=== PATIENT | female | born 1970 | race Caucasian/White ===

== ENCOUNTER 2017-10-30 08:57 | Outpatient (CLI) | payer BC, MEDICARE ==
--- NOTE | 2017-10-30 10:38 | ULT ---
RIGHT UPPER QUADRANT ULTRASOUND: Date: 10-30-17 History: Elevated liver enzymes. FINDINGS: The most proximal abnormal aorta is obscured by bowel gas. The mid and distal abdominal aorta are nor mal in caliber. Visualized portions of the pancreas, liver, and right kidney demonstrate a normal sonographic appeara nce. The right kidney measures 8.6 cm in length. The gallbladder is not visualized consistent with patient's reported history of prior cholecystectomy . The common duct measures 0.2 cm in diameter which is within normal limits. IMPRESSION: 1. Cholecystectomy. Common duct is normal in caliber. POS: [facility]
== END 2017-10-30 08:58 | disposition home or self-care (01) ==
LOC: MADULT 08:57
PROVIDERS: ATTEND Family Medicine
DX: R94.5 Abnormal results of liver function studies (principal); F17.200 Nicotine dependence, unspecified, uncomplicated; Z90.49 Acquired absence of other specified parts of digestive tract
CPT/HCPCS: 76705

== ENCOUNTER 2017-11-16 18:34 | Emergency (ER) | payer BC, MEDICARE ==
[2017-11-16] MEDS ORDERED: HYDROcodone/Acetaminophen 10/325 mg Tablet ONE (19:32)
[2017-11-16] MEDS ORDERED: Morphine 4 MG/ML VIAL ONE (19:35)
[2017-11-16] MEDS ORDERED: Acetaminophen 500 MG TAB ONE (20:35)
--- NOTE | 2017-11-16 20:46 | CT ---
HEAD CT WITHOUT CONTRAST 11/16/17 HISTORY: Arachnoid cyst, removed seven years ago. COMPARISON: 12/26/15, 07/26/15. TECHNIQUE: Noncontrast head CT is performed from skull base to skull vertex. FINDINGS: Postsurgical changes compatible with a left occipital craniotomy. Metallic plate is redemonstrated. S uperficial to this plate, there is a well circumscribed hypodense area with an attenuation coefficien t of 1 Hounsfield unit suggesting a possible pseudomeningocele measuring 9.1 x 3.8 cm. Stable malacic change involving the left cerebellar hemisphere. No parenchymal hemorrhage. No extra-a xial hematoma. No midline shift. Basilar cisterns are patent. Stable malacic change involving the right parietotemporal region due to previous [employer]ATOR shunt catheter pl acement. The remainder of the cerebrum demonstrates preservation of cortical baxter-white matter differ entiation. 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 IMPRESSION: 1. No acute intracranial process. 2. 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 Consider neurosurgica l consultation. POS: [facility]
[2017-11-16] MEDS ORDERED: Diazepam 5 MG TAB ONE (21:24)
[2017-11-16] MEDS ORDERED: diphenhydrAMINE 12.5 MG/5 ML UDCUP ONE (21:25)
[2017-11-16] MEDS ORDERED: Morphine 10 MG/ML VIAL ONE (21:25)
[2017-11-16] MEDS ORDERED: Metoclopramide HCl 10 MG TAB ONE (21:25)
== END 2017-11-16 21:33 | disposition home or self-care (01) ==
LOC: MADERS 18:34
DX: G97.82 Other postprocedural complications and disorders of nervous system (principal); G96.19 Other disorders of meninges, not elsewhere classified; F17.200 Nicotine dependence, unspecified, uncomplicated; Z79.899 Other long term (current) drug therapy
CPT/HCPCS: 70450; 96372; J2270

== ENCOUNTER 2017-11-22 18:23 | Emergency (ER) | payer MEDICARE, BC ==
[2017-11-22] MEDS ORDERED: Fentanyl 100 MCG/2 ML VIAL ONE (19:39)
[2017-11-22] MEDS ORDERED: Ondansetron ODT 4 MG TAB ONE (19:39)
[2017-11-22] MEDS ORDERED: Ibuprofen 800 MG TAB ONE (19:39)
== END 2017-11-22 20:12 | disposition home or self-care (01) ==
LOC: MADERS 18:23
DX: G93.0 Cerebral cysts (principal); G89.29 Other chronic pain; F17.200 Nicotine dependence, unspecified, uncomplicated; Z79.899 Other long term (current) drug therapy
CPT/HCPCS: 96372; J3010; Q0162

== ENCOUNTER 2017-11-23 17:44 | Outpatient (CLI) | payer MEDICARE, BC ==
[2017-11-23 18:06] LABS: #Basophils 0.1 thou/uL (0.0-0.2); #Eosinphils 0.3 thou/uL (0.0-0.7); #Monocytes 0.4 thou/uL (0.11-0.59); #Neutrophils 3.9 thou/uL (1.40-6.50); %Basophils 0.8 % (0.0-1.0); %Lymphocytes 30.2 % (21.0-51.0); %Monocytes 6.1 % (0.0-10.0); %Neutrophils 58.9 % (42.0-75.0); Hemoglobin 12.4 g/dL (12.0-16.0); Mean Corpuscular HGB CONC 32.9 g/dL (32.0-36.0); Mean Corpuscular Hemoglobin 29.2 pg (27.0-31.0); Mean Corpuscular Volume 88.7 fl (81.0-99.0); Mean Platelet Volume 7.7 fL (7.4-10.4); Platelet Count 144 thou/uL (130-400); RBC Distribution Width 12.1 % (11.5-14.5); Red Blood Cell (RBC) Count 4.25 mill/uL (4.20-5.40); White Blood Cell (WBC) Count 6.7 thou/uL (4.8-10.8)
[2017-11-23 18:10] LABS: INR-International Normal Ratio 0.9; PTT 32.4 SEC (22.9-36.1); Prothrombin Time 12.2 SEC (12.0-14.7)
[2017-11-23 18:17] LABS: Anion Gap 13 mmol/L (10-20); BUN (Urea Nitrogen) 11 mg/dL (7.0-18.7); Calc. Creatinine Clearance 0 mL/min (70-130); Calcium 8.8 mg/dL (7.8-10.44); Carbon Dioxide 27 mmol/L (22-29); Chloride 105 mmol/L (98-107); Estimated GFR-MDRD 88; Glucose 90 mg/dL (70-105); Potassium 4.1 mmol/L (3.5-5.1); Sodium 141 mmol/L (136-145)
== END 2017-11-23 17:45 | disposition home or self-care (01) ==
LOC: MADLAB 17:44
PROVIDERS: ATTEND Physical Medicine & Rehabilitation
DX: Z01.812 Encounter for preprocedural laboratory examination (principal)
CPT/HCPCS: 36415; 80048; 85025; 85610; 85730

== ENCOUNTER 2018-04-12 14:39 | Outpatient (CLI) | payer BC, MEDICARE ==
[2018-04-12 14:51] LABS: Anion Gap 17 mmol/L (10-20); BUN (Urea Nitrogen) 10 mg/dL (7.0-18.7); Calc. Creatinine Clearance 0 mL/min (70-130); Calcium 8.9 mg/dL (7.8-10.44); Carbon Dioxide 18 mmol/L (22-29); Chloride 107 mmol/L (98-107); Estimated GFR-MDRD Greater than 90; Glucose 109 mg/dL (70-105); Potassium 4.1 mmol/L (3.5-5.1); Sodium 138 mmol/L (136-145)
[2018-04-12 14:54] LABS: #Basophils 0.1 thou/uL (0.0-0.2); #Eosinphils 0.2 thou/uL (0.0-0.7); #Lymphocytes 1.5 thou/uL (1.20-3.40); #Monocytes 0.4 thou/uL (0.11-0.59); #Neutrophils 4.2 thou/uL (1.40-6.50); %Basophils 0.9 % (0.0-1.0); %Eosinophils 3.3 % (0.0-10.0); %Lymphocytes 24.1 % (21.0-51.0); %Monocytes 5.9 % (0.0-10.0); %Neutrophils 65.8 % (42.0-75.0); Hemoglobin 13.5 g/dL (12.0-16.0); Mean Corpuscular HGB CONC 33.3 g/dL (32.0-36.0); Mean Corpuscular Hemoglobin 29.9 pg (27.0-31.0); Mean Platelet Volume 8.8 fL (7.4-10.4); Platelet Count 161 thou/uL (130-400); RBC Distribution Width 11.7 % (11.5-14.5); Red Blood Cell (RBC) Count 4.51 mill/uL (4.20-5.40); White Blood Cell (WBC) Count 6.4 thou/uL (4.8-10.8)
[2018-04-12 15:04] LABS: Vancomycin, Trough 12.2 ug/mL
== END 2018-04-12 14:40 | disposition home or self-care (01) ==
LOC: MADLAB 14:39
DX: Z51.81 Encounter for therapeutic drug level monitoring (principal); Z79.2 Long term (current) use of antibiotics
CPT/HCPCS: 80048; 80202; 85025

== ENCOUNTER 2018-04-17 13:27 | Outpatient (CLI) | payer BC, MEDICARE ==
[2018-04-17 13:41] LABS: Anion Gap 15 mmol/L (10-20); BUN (Urea Nitrogen) 8 mg/dL (7.0-18.7); Calc. Creatinine Clearance 0 mL/min (70-130); Calcium 9.1 mg/dL (7.8-10.44); Carbon Dioxide 24 mmol/L (22-29); Chloride 105 mmol/L (98-107); Estimated GFR-MDRD Greater than 90; Glucose 80 mg/dL (70-105); Potassium 4.1 mmol/L (3.5-5.1); Sodium 140 mmol/L (136-145)
[2018-04-17 13:43] LABS: Vancomycin, Trough 13.1 ug/mL
[2018-04-17 13:45] LABS: #Eosinphils 0.2 thou/uL (0.0-0.7); #Lymphocytes 1.7 thou/uL (1.20-3.40); #Monocytes 0.4 thou/uL (0.11-0.59); #Neutrophils 4.8 thou/uL (1.40-6.50); %Basophils 0.4 % (0.0-1.0); %Eosinophils 3.2 % (0.0-10.0); %Lymphocytes 24.2 % (21.0-51.0); %Neutrophils 67.2 % (42.0-75.0); Mean Corpuscular HGB CONC 33.4 g/dL (32.0-36.0); Mean Corpuscular Hemoglobin 30.1 pg (27.0-31.0); Mean Corpuscular Volume 90.1 fL (78.0-98.0); Mean Platelet Volume 7.1 fL (7.4-10.4); Platelet Count 173 thou/uL (130-400); RBC Distribution Width 11.7 % (11.5-14.5); Red Blood Cell (RBC) Count 4.33 mill/uL (4.20-5.40); White Blood Cell (WBC) Count 7.2 thou/uL (4.8-10.8)
== END 2018-04-17 13:28 | disposition home or self-care (01) ==
LOC: MADLAB 13:27
DX: Z51.81 Encounter for therapeutic drug level monitoring (principal); Z95.2 Presence of prosthetic heart valve
CPT/HCPCS: 80048; 80202; 85025

== ENCOUNTER 2018-04-19 13:07 | Outpatient (CLI) | payer BC, MEDICARE ==
[2018-04-19 13:45] LABS: #Eosinphils 0.2 thou/uL (0.0-0.7); #Lymphocytes 1.4 thou/uL (1.20-3.40); #Monocytes 0.3 thou/uL (0.11-0.59); #Neutrophils 3.9 thou/uL (1.40-6.50); %Basophils 0.6 % (0.0-1.0); %Eosinophils 4.2 % (0.0-10.0); %Lymphocytes 23.2 % (21.0-51.0); %Monocytes 5.7 % (0.0-10.0); %Neutrophils 66.3 % (42.0-75.0); Mean Corpuscular HGB CONC 33.2 g/dL (32.0-36.0); Mean Corpuscular Volume 90.5 fL (78.0-98.0); Mean Platelet Volume 6.9 fL (7.4-10.4); Platelet Count 170 thou/uL (130-400); RBC Distribution Width 11.7 % (11.5-14.5); Red Blood Cell (RBC) Count 4.32 mill/uL (4.20-5.40); White Blood Cell (WBC) Count 5.8 thou/uL (4.8-10.8)
[2018-04-19 13:48] LABS: Vancomycin, Trough 9.7 ug/mL
[2018-04-19 13:52] LABS: ALT (SGPT) 29 U/L (8-55); AST (SGOT) 18 U/L (5-34); Alkaline Phosphatase 85 U/L (40-150); Anion Gap 14 mmol/L (10-20); BUN (Urea Nitrogen) 6 mg/dL (7.0-18.7); Bilirubin, Total 0.3 mg/dL (0.2-1.2); Calc. Creatinine Clearance 0 mL/min (70-130); Carbon Dioxide 25 mmol/L (22-29); Chloride 105 mmol/L (98-107); Estimated GFR-MDRD Greater than 90; Globulin 2.6 g/dL (2.4-3.5); Glucose 82 mg/dL (70-105); Protein, Total 6.6 g/dL (6.0-8.3); Sodium 140 mmol/L (136-145)
== END 2018-04-19 13:08 | disposition home or self-care (01) ==
LOC: MADLAB 13:07
DX: Z51.81 Encounter for therapeutic drug level monitoring (principal); Z79.2 Long term (current) use of antibiotics
CPT/HCPCS: 80053; 80202; 85025

== ENCOUNTER 2019-03-05 19:15 | Emergency (ER) | payer BC, MEDICARE ==
[2019-03-05] MEDS ORDERED: Morphine 2 MG/ML SYRINGE ONE (20:09)
[2019-03-05] MEDS ORDERED: Metoclopramide HCl 10 MG TAB ONE (20:09)
[2019-03-05] MEDS ORDERED: methylPREDNISolone Sod Succ/PF 125 MG/2 ML VIAL ONE (20:09)
[2019-03-05] MEDS ORDERED: Morphine 4 MG/ML VIAL ONE ×2 (20:09→21:08)
[2019-03-05] MEDS ORDERED: Metoclopramide HCl 10 MG/2 ML VIAL ONE (20:10)
[2019-03-05 20:16] LABS: Mean Corpuscular HGB CONC 32.9 g/dL (32.0-36.0); Mean Corpuscular Hemoglobin 29.1 pg (27.0-31.0); Mean Corpuscular Volume 88.3 fL (78.0-98.0); Platelet Count 131 thou/uL (130-400); Red Blood Cell (RBC) Count 4.45 mill/uL (4.20-5.40); White Blood Cell (WBC) Count 7.1 thou/uL (4.8-10.8)
[2019-03-05 20:24] LABS: INR-International Normal Ratio 0.8; Prothrombin Time 11.5 SEC (12.0-14.7)
[2019-03-05 20:25] LABS: ALT (SGPT) 16 U/L (8-55); AST (SGOT) 17 U/L (5-34); Alkaline Phosphatase 85 U/L (40-110); Anion Gap 16 mmol/L (10-20); BUN (Urea Nitrogen) 14 mg/dL (7.0-18.7); Bilirubin, Total 0.2 mg/dL (0.2-1.2); Calc. Creatinine Clearance 0 mL/min (70-130); Calcium 9.5 mg/dL (7.8-10.44); Carbon Dioxide 23 mmol/L (22-29); Chloride 105 mmol/L (98-107); Estimated GFR-MDRD 81; Globulin 3.1 g/dL (2.4-3.5); Glucose 96 mg/dL (70-105); Potassium 4.1 mmol/L (3.5-5.1); Protein, Total 7.1 g/dL (6.0-8.3); Sodium 140 mmol/L (136-145)
[2019-03-05 20:34] LABS: Band 4 % (5-11); Eosinophils 4 % (0-10); Lymphocytes 27 % (21-51); MDiff Complete? YES; Monocytes 6 % (0-10); Neutrophil 59 % (42-75); Platelet Morphology Comment Appears Adequate; RBC Morphology Normal
--- NOTE | 2019-03-05 20:51 | CT ---
EXAM: CT CERVICAL SPINE WITHOUT CONTRAST: 03/05/19 HISTORY: Dog jumped on patient's neck. Paresthesia. Tingling. Pain. The patient has a history of a pseudomeningocele. COMPARISON: 01/04/18. FINDINGS: Straightening of the normal cervical lordosis may be due to patient position, muscle spasm, or cervic al collar. Current study is not tailored to assess for ligamentous injury. No craniocervical dissociation. Appropriate alignment of the lateral mass of C1 and C2. Intact odonto id process. Cervical spine vertebral body height is maintained. No fracture. Pseudomeningocele is noted. Refer to separate head CT report for further detail. Soft tissue neck structures, upper mediastinum, and lung apices are unremarkable. Central spinal canal and neural foramina appear to be patent. No evidence of high grade central canal stenosis or high grade neural foraminal narrowing. Limited evaluation due to technique. Stable posterior decompression of the C1 ring. IMPRESSION: 1. Straightening of the normal cervical lordosis. If there is concern for ligamentous injury, MR I can be performed. 2. No cervical spine fracture. 3. No CT evidence of high grade central canal stenosis. POS: [facility]
--- NOTE | 2019-03-05 20:55 | CT ---
EXAM: NONCONTRAST HEAD CT: 03/05/19 COMPARISON: 11/16/17, 01/01/18. HISTORY: Trauma. Dog stepped on patient's neck. Patient has a history of a pseudomeningocele. FINDINGS: No parenchymal hemorrhage. No extra-axial hematoma. No midline shift. Basilar cisterns are patent. Stable malacic change involving the right temporofrontal region as well as the left occipital region/ left cerebellar hemisphere. The remainder of the cerebrum demonstrates preservation of cortical baxter- white matter differentiation. There are staple postsurgical changes with a left occipital craniectomy . Additionally, there are arben hole defects in the right calvarium, stable. Redemonstration of a flui d collection posterior to the metallic flap placed along the calvarial defect. Currently, this pseudo meningocele measures 6.8 cm mediolateral x 4.2 cm anterior posterior. In November 2017, this collection m easured 8.6 cm mediolateral x 4.2 cm anterior posterior. IMPRESSION: 1. No intracranial posttraumatic sequela. 2. Stable postoperative changes as described above. 3. Interval decrease in size of a pseudomeningocele. POS: [facility]
[2019-03-05] MEDS ORDERED: Ketorolac Tromethamine 30 MG/ML VIAL ONE (21:08)
== END 2019-03-05 21:40 | disposition home or self-care (01) ==
LOC: MADERS 19:15
DX: S10.93XA Contusion of unspecified part of neck, initial encounter (principal); G43.909 Migraine, unspecified, not intractable, without status migrainosus; G40.909 Epilepsy, unspecified, not intractable, without status epilepticus; F17.210 Nicotine dependence, cigarettes, uncomplicated; Z79.899 Other long term (current) drug therapy; W54.1XXA Struck by dog, initial encounter
CPT/HCPCS: 70450; 72125; 80053; 85025; 85610; 96374; 96375; 96376; J1885; J2270; J2765; J2930; J8597

== ENCOUNTER 2019-05-07 22:30 | Emergency (ER) | payer BC, MEDICARE ==
[2019-05-07] MEDS ORDERED: methylPREDNISolone Sod Succ/PF 125 MG/2 ML VIAL ONE (23:03)
[2019-05-07] MEDS ORDERED: diphenhydrAMINE 50 MG/ML VIAL ONE (23:03)
[2019-05-07] MEDS ORDERED: Sodium Chloride 0.9% 1,000 ML ONE (23:03)
[2019-05-07] MEDS ORDERED: Ketorolac Tromethamine 30 MG/ML VIAL ONE (23:03)
== END 2019-05-08 00:52 | disposition home or self-care (01) ==
LOC: MADERS 22:30
DX: G43.909 Migraine, unspecified, not intractable, without status migrainosus (principal); J06.9 Acute upper respiratory infection, unspecified; F17.210 Nicotine dependence, cigarettes, uncomplicated; Z79.899 Other long term (current) drug therapy
CPT/HCPCS: 96361; 96374; 96375; 99406; J1200; J1885; J2930; J7050

== ENCOUNTER 2020-04-21 17:28 | Emergency (ER) | payer BC, MEDICARE ==
[~2020-04-21 17:28] MED LIST: Iopamidol 370 76% 100 ML VIAL ONE
[2020-04-21] MEDS ORDERED: diphenhydrAMINE 50 MG/ML VIAL ONE (18:03)
[2020-04-21] MEDS ORDERED: Dexamethasone 10 MG/ML VIAL ONE (18:03)
[2020-04-21] MEDS ORDERED: Prochlorperazine 10 MG/2 ML VIAL ONE (18:03)
--- NOTE | 2020-04-21 19:01 | CT ---
CT neck with IV contrast HISTORY: Neck mass. FINDINGS: Postoperative changes of the left posterior fossa are apparent. This includes a metallic sh eet. The postoperative changes are partially visualized and extend to the C1 level where there is absence of the left posterolateral aspect of the C1 arch. There is atrophy of the underlying musculat ure. No fluid collections or inflammation. Salivary glands and thyroid gland are unremarkable. No enlarged lymph nodes evident. Mucosal thickening of the sphenoid sinus and left ethmoid air cells are apparent. Within the partially visualized upper chest, mild nonspecific atelectasis is present at the posterior aspect of each lung apex. IMPRESSION : Postoperative changes of the left occiput and craniocervical junction. No evidence of complication. Findings were called to Dr. Fletcher in the [place] [facility] at the time of the exam Code CR.
--- NOTE | 2020-04-21 19:06 | CT ---
CT head noncontrast HISTORY: Headache. Multiple previous surgeries. Cyst. COMPARISON: 03/05/2019. FINDINGS: Extensive postoperative changes are again demonstrated with metallic sheath over the left o ccipital craniectomy and minimal underlying encephalomalacia. No acute intracranial hemorrhage or infarct. The large fluid density lesion that overlie the left upper neck on the prior study is no allie flo evident. Encephalomalacia within the right frontoparietal lobe is stable. Mucosal thickening is apparent within the ethmoid air cells and sphenoid sinus. IMPRESSION : Postoperative changes and old ischemic insult are stable. No new abnormalities are demonstrated.
[2020-04-21] MEDS ORDERED: Ketorolac Tromethamine 30 MG/ML VIAL ONE (19:28)
== END 2020-04-21 20:18 | disposition home or self-care (01) ==
LOC: MADERS 17:28
DX: G43.909 Migraine, unspecified, not intractable, without status migrainosus (principal); G40.909 Epilepsy, unspecified, not intractable, without status epilepticus; F17.210 Nicotine dependence, cigarettes, uncomplicated; Z79.899 Other long term (current) drug therapy
CPT/HCPCS: 70450; 70491; 96374; 96375; J0780; J1100; J1200; J1885; Q9967